=== PATIENT | female | born 1990 | race Caucasian/White ===

== ENCOUNTER → 2018-06-03 | Outpatient (CLI) | payer BC, OTHER ==
--- NOTE | 2018-06-03 15:41 | 2DMMODE ---
[facility] [place] [address] 2 D/M-MODE ECHOCARDIOGRAM Name: KYLE MALDONADO Room #: REG [facility]#: [id number] ������������� Admission: 06/03/18 ������������� Attend Phys: Geovanny Vasquez Discharge: ��� ������������� ��� Date of : 89 Date of Service: 06/03/18 1540 �� Report #: [id number] �������� ��������������������������������������������[id number] THIS REPORT FOR: //name// APPROVED REPORT Study performed: 06/03/2018 15:03:31 EXAM: Comprehensive 2D, Doppler, and color-flow Echocardiogram Patient Location: Out-Patient Status: routine BSA: 1.58 HR: 54 bpm BP: 120/80 mmHg Rhythm: NSR/Frequent PVCs. Other Information Study Quality: Good Indications Palpitations PVCs 2D Dimensions RVDd: 36.56 mm IVSd: 9.12 (7-11mm) LVOT Diam: 19.53 (18-24mm) LVDd: 52.34 mm PWd: 9.06 (7-11mm) LVDs: 38.71 (25-40mm) Aortic Root: 29.27 mm Volumes Left Atrial Volume (Systole) Single Plane 4CH: 41.31 mL Single Plane 2CH: 43.13 mL LA ESV Index: 30.00 mL/m2 Mitral Valve E/A Ratio: 1.2 MV Decel. Time: 157.78 ms MV E Max Иван.: 0.77 m/s MV A Иван.: 0.64 m/s MV PHT: 45.76 ms IVRT: 96.89 ms Pulmonary Valve [facility] [address] [place] [address] 2 D/M-MODE ECHOCARDIOGRAM Name: APOLLO MALDONADOIN Room #: REG [facility]#: [id number] ������������� Admission: 06/03/18 ������������� Attend [facility] Discharge: ��� ������������� ��� Date of : 89 Date of Service: 06/03/18 1540 �� Report #: [id number] �������� ��������������������������������������������[id number] PV Peak Иван.: 1.01 m/s PV Peak Gr.: 4.07 mmHg Pulmonary Vein P Vein S: 0.54 m/s P Vein A: 0.29 m/s P Vein D: 0.47 m/s P Vein A Dur.: 166.1 msec P Vein S/D Ratio: 1.15 Tricuspid Valve TR Peak Иван.: 1.90 m/s RAP Estimate: 5.00 mmHg TR Peak Gr.: 14.39 mmHg PA Pressure: 19.00 mmHg Left Ventricle The left ventricle is normal size. There is normal LV segmental wall motion. There is normal left ventricular wall thickness. The left ventricular systolic function is normal. LVEF is 55-60%. The left ventricular diastolic function is normal. Right Ventricle The right ventricle is normal size. The right ventricular systolic function is normal. Atria The left atrium size is normal. The right atrium size is normal. Aortic Valve The aortic valve is normal in structure. Trace aortic regurgitation. There is no aortic valvular stenosis. Mitral Valve The mitral valve is normal in structure. Trace to mild mitral regurgitation. Tricuspid Valve The tricuspid valve is normal in structure. Trace tricuspid regurgitation. Estimated PAP is 20mmHg. Pulmonic Valve The pulmonary valve is normal in structure. Trace pulmonic regurgitation. Great Vessels The aortic root is normal in size. The ascending aorta is normal in size. IVC is normal in size and collapses >50% with inspiration. [facility] [place] [address] 2 D/M-MODE ECHOCARDIOGRAM Name: KYLE MALDONADO Room #: REG [facility]#: [id number] ������������� Admission: 06/03/18 ������������� Attend Phys: Geovanny Vasquez Discharge: ��� ������������� ��� Date of : 89 Date of Service: 06/03/18 1540 �� Report #: [id number] �������� ��������������������������������������������[id number] Pericardium There is no pericardial effusion. <Conclusion> The left ventricle is normal size. LVEF is 55-60%. The aortic valve is normal in structure. Trace aortic regurgitation. The mitral valve is normal in structure. Trace to mild mitral regurgitation. The mitral valve is normal in structure. Trace to mild mitral regurgitation. The tricuspid valve is normal in structure. Trace tricuspid regurgitation. Estimated PAP is 20mmHg. The pulmonary valve is normal in structure. Trace pulmonic regurgitation. There is no pericardial effusion. ��������������������������������������������� <ELECTRONICALLY SIGNED> ���������������������������������������� By: Ankit Sánchez MD ��������������������������������������������� 06/03/18 1540 1540 1540 Ankit Sánchez MD /INF
== END ==
LOC: CV 09:02
DX: R00.2 Palpitations (principal); I49.3 Ventricular premature depolarization